=== PATIENT | female | born 2000 ===

== ENCOUNTER 2018-06-04 12:22 | Emergency (ER) | payer OTHER ==
[2018-06-04 12:25] VITALS: BMI 21.9
[2018-06-04 12:26] VITALS: BP 132/81; PULSE 70; RESP 17; TEMP 98.9; O2SAT 100
--- NOTE | 2018-06-04 13:10 | C.PDOC ---
History Of Present Illness Pt states that the "squooshy" part of her earbuds got stuck in her right ear. Time Seen by Provider: 06/04/18 12:46 Chief Complaint (Nursing): Foreign Body History Per: Patient Onset/Duration Of Symptoms: Hrs (this morning) Current Symptoms Are (Timing): Still Present Quality (Ear): Foreign Body Severity: Moderate Past Medical History Reviewed: Historical Data, Nursing Documentation, Vital Signs Vital Signs: Last Vital Signs Temp 98.9 F 06/04/18 12:25 Pulse 70 06/04/18 12:25 Resp 17 06/04/18 12:25 BP 132/81 06/04/18 12:25 Pulse Ox 100 06/04/18 12:25 - Medical History PMH: Asthma Family History: States: Unknown Family Hx - Social History Hx Alcohol Use: Yes Hx Substance Use: No Review Of Systems Except As Marked, All Systems Reviewed And Found Negative. Constitutional: Negative for: Fever, Weakness ENT: Negative for: Ear Discharge Cardiovascular: Negative for: Chest Pain Respiratory: Negative for: Shortness of Breath Skin: Negative for: Rash Neurological: Negative for: Weakness, Numbness Physical Exam - Physical Exam Appears: Non-toxic, No Acute Distress Skin: Normal Color, Warm, Dry, No Rash Head: Atraumatic, Normacephalic Eye(s): bilateral: Normal Inspection, PERRL, EOMI Ear(s): Right: Other (White FB in mid canal) Neck: Normal ROM, Supple Extremity: Normal ROM, No Deformity Neurological/Psych: Oriented x3, Normal Motor, Normal Sensation ED Course And Treatment O2 Sat by Pulse Oximetry: 100 Pulse Ox Interpretation: Normal Progress Note: FB was removed by me with aligator forceps without any difficulty or complication. Ear exam after FB removal: TM intact, no residual FB. Reassessment Condition: Improved Disposition Counseled Patient/Family Regarding: Diagnosis, Need For Followup - Disposition Referrals: Shoaib Verma MD [Medical Doctor] - Disposition: HOME/ ROUTINE Disposition Time: 13:10 Condition: IMPROVED Additional Instructions: Follow up with your doctor. Return to the ER if you develop fever, pain, redness , swelling, discharge, worsening of symptoms or if you have any other concerns. Instructions: Removing Objects Stuck in the Ear - Clinical Impression Clinical Impression: Acute foreign body of right ear canal
== END 2018-06-04 13:21 | disposition home or self-care (01) ==
LOC: C.ER 12:22
DX: T16.1XXA Foreign body in right ear, initial encounter (principal); X58.XXXA Exposure to other specified factors, initial encounter